=== PATIENT | female | born 1970 | race Caucasian/White ===

== ENCOUNTER 2017-04-15 21:06 | Emergency (ER) | payer SELFPAY, OTHER | END 2017-04-15 21:30 | disposition left against medical advice (07) | LOC: E/R 21:06 | DX: Z53.21 Procedure and treatment not carried out due to patient leaving prior to being seen by health care provider (principal) ==

== ENCOUNTER 2018-07-15 21:44 | Emergency (ER) | payer SELFPAY, OTHER ==
[2018-07-16 01:01] LABS: URINE BLOOD (Dip) POC Negative (NEGATIVE); URINE GLUCOSE (Dip) POC Negative (NEGATIVE); URINE KETONES (Dip) POC Negative (NEGATIVE); URINE LEUKOCYTE EST (Dip) POC Trace (NEGATIVE); URINE NITRITE (Dip) POC Negative (NEGATIVE); URINE TOTAL PROTEIN POC Negative (NEGATIVE)
== END 2018-07-16 01:37 | disposition home or self-care (01) ==
LOC: FTE 21:44
DX: N39.0 Urinary tract infection, site not specified (principal)
CPT/HCPCS: 81003; 81025; 99283

== ENCOUNTER 2018-07-25 01:53 | Emergency (ER) | payer MEDICAID ==
[2018-07-25] MEDS: KETOROLAC 15 MG INJ IV (03:22)
[2018-07-25] MEDS: SOD CHLORIDE 0.9% 1,000 ML IV (03:23)
[2018-07-25 03:38] LABS: ADD MAN DIFF? NO
[2018-07-25 03:53] LABS: INR 0.95; PROTIME 12.8 Sec (11.9-14.9)
[2018-07-25 03:54] LABS: ANION GAP 11 (5-13); BLOOD UREA NITROGEN 21 mg/dl (7-20); CALCIUM 10.1 mg/dl (8.4-10.2); CARBON DIOXIDE 28 mmol/L (21-31); CHLORIDE 105 mmol/L (97-110); CREATININE 0.72 mg/dl (0.44-1.00); Estimated GFR > 60 mL/min (>60); GLUCOSE 138 mg/dl (70-220); PARTIAL THROMBOPLASTIN TIME 34.7 Sec (23.0-35.0); POTASSIUM 3.8 mmol/L (3.5-5.1); SODIUM 144 mmol/L (135-144)
[2018-07-25 04:05] LABS: BASOPHILS % 0.3 % (0.0-2.0); EOSINOPHILS # 0.1 10^3/ul (0.0-0.5); EOSINOPHILS % 0.9 % (0.0-7.0); HEMATOCRIT 41.2 % (37.0-47.0); HEMOGLOBIN 14.4 g/dl (12.0-16.0); LYMPHOCYTES % 29.9 % (15.0-51.0); MEAN CORPUSCULAR HEMOGLOBIN 30.4 pg (29.0-33.0); MEAN CORPUSCULAR VOLUME 87.1 fl (82.0-101.0); MONOCYTE # 0.4 10^3/ul (0.3-0.9); MONOCYTES % 5.8 % (0.0-11.0); NEUTROPHIL # 4.1 10^3/ul (1.6-7.5); NEUTROPHILS % 62.6 % (39.0-77.0); PLATELET COUNT 309 10^3/UL (140-415); RED BLOOD COUNT 4.73 10^6/ul (4.20-5.40); RED CELL DISTRIBUTION WIDTH 11.9 % (11.5-14.5); TROPONIN-I < 0.012 ng/ml (0.000-0.120)
[2018-07-25 04:05] LABS: WHITE BLOOD COUNT 6.6 10^3/ul (4.8-10.8)
[2018-07-25 04:27] LABS: MEAN PLATELET VOLUME 10.9 fl (7.4-10.4); POSITIVE DIFF @See below
[2018-07-25 04:51] LABS: URINE PH (Dip) POC 5.5 (5.0-8.5)
[2018-07-25 04:51] LABS: URINE BLOOD (Dip) POC Negative (NEGATIVE); URINE GLUCOSE (Dip) POC Negative (NEGATIVE); URINE KETONES (Dip) POC Negative (NEGATIVE); URINE LEUKOCYTE EST (Dip) POC Negative (NEGATIVE); URINE NITRITE (Dip) POC Negative (NEGATIVE); URINE TOTAL PROTEIN POC Negative (NEGATIVE)
== END 2018-07-25 05:14 | disposition home or self-care (01) ==
LOC: E/R 01:53
DX: F41.9 Anxiety disorder, unspecified (principal); R52 Pain, unspecified
CPT/HCPCS: 36415; 71045; 80048; 81003; 81025; 84484; 85025; 85378; 85610; 85730; 93005; 96374; 99285-25